=== PATIENT | female | born 1985 | race Caucasian/White ===

== ENCOUNTER 2021-06-09 09:12 | Outpatient (CLI) | payer BC, SELFPAY ==
[2021-06-09 09:41] LABS: Hemoglobin A1C 4.6 % (<5.7)
[2021-06-09 10:29] LABS: Thyroid Stimulating Hormone Reflex 0.935 uIU/mL (0.465-4.68)
[2021-06-12 15:32] LABS: Prolactin 6.1 ng/mL (***)
== END 2021-06-09 09:13 | disposition home or self-care (01) ==
LOC: ANHLAB 09:15
PROVIDERS: Visit Provider Obstetrics & Gynecology
DX: N92.6 Irregular menstruation, unspecified (principal)
CPT/HCPCS: 36415; 83036; 84146; 84443

== ENCOUNTER 2022-09-26 09:22 | Outpatient (RCR) | payer BC, SELFPAY ==
[2022-09-26 11:26] LABS: Basophils Absolute Auto 0.1 K/mm3 (0.0-0.1); Basophils Percent Auto 0.5 % (0.2-1.2); Eosinophils Absolute Auto 0.1 K/mm3 (0-0.3); Eosinophils Percent Auto 0.5 % (0-4.4); Hematocrit 39.5 % (37.0-47.0); Immature Granulocyte Absolute 0.22 K/mm3 (0.00-0.031); Immature Granulocyte Percent A 1.6 % (0-0.5); Lymphocytes Absolute Auto 1.62 K/mm3 (0.9-3.2); Lymphocytes Percent Auto 12.1 % (18.3-44.2); Mean Corpuscular HGB Conc 32.9 g/dl (32-36); Mean Corpuscular Hemoglobin 30.8 pg (26-34); Mean Corpuscular Volume 93.6 fl (80-100); Mean Platelet Volume 9.8 fl (7.4-10.4); Monocytes Absolute Auto 0.7 K/mm3 (0.1-0.6); Monocytes Percent Auto 5.5 % (2.6-8.5); Neutrophils Absolute Auto 10.7 K/mm3 (1.3-6.7); Neutrophils Percent Auto 79.8 % (45.5-73.1); Platelet Count Result 260 k/mm3 (150-375); Red Blood Count 4.22 M/mm3 (4.2-5.4); Red Cell Distribution Width 14.1 % (11.5-14.5); White Blood Count 13.4 K/mm3 (4.5-10.0)
[2022-09-26 11:36] LABS: Glucose 1 Hour PP 50gm Dose 94 mg/dL
[2022-09-26 12:17] LABS: HIV 1/2 Ab P24 Ag Result Negative (Negative)
[2022-09-26] MEDS: RHO(D) IMMUNE GLOBULIN 300 MCG/2 ML SYRINGE IM (13:56)
== END 2022-12-25 23:59 | disposition home or self-care (01) ==
LOC: ANHLAB 09:22
PROVIDERS: Visit Provider Obstetrics & Gynecology
DX: Z11.4 Encounter for screening for human immunodeficiency virus [HIV] (principal); Z29.13 Encounter for prophylactic Rho(D) immune globulin; O36.0190 Maternal care for anti-D [Rh] antibodies, unspecified trimester, not applicable or unspecified; Z3A.00 Weeks of gestation of pregnancy not specified
CPT/HCPCS: 36415; 82947; 85025; 85461; 86703; 86850; 86900; 86901; 90384; 96372; G0432; J2790

== ENCOUNTER 2022-10-18 13:41 | Outpatient (CLI) | payer BC, SELFPAY ==
[2022-10-22 12:28] LABS: CMV IgG Antibody <0.60
[2022-10-22 14:33] LABS: Varicella IgG Antibody 2740
== END 2022-10-18 13:42 | disposition home or self-care (01) ==
PROVIDERS: Visit Provider Obstetrics & Gynecology
DX: Z34.90 Encounter for supervision of normal pregnancy, unspecified, unspecified trimester (principal); Z3A.00 Weeks of gestation of pregnancy not specified
CPT/HCPCS: 36415; 86644; 86747; 86787

== ENCOUNTER 2022-12-12 15:51 | Inpatient (IN) | payer BC, SELFPAY ==
[2022-12-12] VITALS (16 sets, daily range): BP systolic 109–128; BP diastolic 32–104; PULSE 63–94; BMI 33.2
--- NOTE | 2022-12-12 16:16 | LDADM ---
This patient, Raina Garcia, was admitted to Labor/Delivery/Recovery 104 on 12/12/22 at 15:51. Plans for labor, pain management and were discussed with patient. Patient/family oriented to hospital policies and general routines including ID bracelet, bed and alarms, visiting hours, pain management, procedures, bathroom and other care routines, personal items, smoking policy, room service/diet and guest tray routines, infant security routines, and visiting hours. Patient/Family are encouraged to report perceived risks to care and to ask questions if they do not understand what they are told or what they should do. See OBIX for further documentation.
[2022-12-12 17:05] LABS: Basophils Percent Auto 0.2 % (0.2-1.2); Eosinophils Percent Auto 0.2 % (0-4.4); Hematocrit 42.6 % (37.0-47.0); Hemoglobin 14.5 g/dL (12.0-15.0); Immature Granulocyte Absolute 0.18 K/mm3 (0.00-0.031); Immature Granulocyte Percent A 1.4 % (0-0.5); Lymphocytes Absolute Auto 1.56 K/mm3 (0.9-3.2); Lymphocytes Percent Auto 12.2 % (18.3-44.2); Mean Corpuscular Hemoglobin 30.7 pg (26-34); Mean Corpuscular Volume 90.1 fl (80-100); Mean Platelet Volume 10.6 fl (7.4-10.4); Monocytes Absolute Auto 0.8 K/mm3 (0.1-0.6); Monocytes Percent Auto 6.4 % (2.6-8.5); Neutrophils Absolute Auto 10.2 K/mm3 (1.3-6.7); Neutrophils Percent Auto 79.6 % (45.5-73.1); Platelet Count Result 187 k/mm3 (150-375); Red Blood Count 4.73 M/mm3 (4.2-5.4); Red Cell Distribution Width 13.8 % (11.5-14.5); White Blood Count 12.8 K/mm3 (4.5-10.0)
[2022-12-12] MEDS: DINOPROSTONE 10 MG VAG INSERT VAGINAL (17:10)
[2022-12-13] VITALS (113 sets, daily range): BP systolic 99–136; BP diastolic 49–98; PULSE 68–120; RESP 16–20; TEMP 36.6–37.2; O2SAT 94–100
[2022-12-13] MEDS: LACTATED RINGERS 1,000 ML 125 ML IV CONT ×2 (05:57→08:10)
[2022-12-13] MEDS: OXYTOCIN 30 UNITS/NS 500 ML 30 UNITS/500 ML BAG 6 UNITS IV CONT (05:57)
[2022-12-13 07:23] LABS: Rapid Plasma Reagin Non-Reactive (NonReactive)
--- NOTE | 2022-12-13 07:45 | WPDANESEPP ---
Anes - Eval Pre Procedure Procedure: Labor Epidural Date/Time: 12/13/22 07:45 Surgeon: Roman Preop Diagnosis: Labor Pain Pre Op Diagnosis: IOL Patient Data Age: 37 Gender: F Height: 1.6 m Weight: 85 kg Last Vital Signs Temp 36.7 C 12/13/22 05:16 Pulse 86 12/13/22 07:43 BP 130/78 12/13/22 07:43 Pulse Ox 96 12/13/22 07:45 O2 Del Method Room Air 12/12/22 16:14 Allergies Allergy/AdvReac Type Severity Reaction Status Date / Time No Known Allergies Allergy Verified 12/10/22 08:11 Home Medications Medication Instructions Recorded Confirmed Type famotidine 20 mg tablet (Pepcid) 20 mg PO DAILY 09/18/22 12/12/22 History polyethylene glycol 3350 17 17 g PO DAILY 10/08/22 12/12/22 History gram/dose oral powder (Miralax) vit no.95-ferrous 1 tablet PO DAILY 11/17/22 12/12/22 History fumarate 28 mg-folic acid 800 mcg tablet () Laboratory Tests 12/12/22 16:06 WBC 12.8 H K/mm3 (4.5-10.0) RBC 4.73 M/mm3 (4.2-5.4) Hgb 14.5 g/dL (12.0-15.0) Hct 42.6 % (37.0-47.0) MCV 90.1 fl (80-100) MCH 30.7 pg (26-34) MCHC 34.0 g/dl (32-36) RDW 13.8 % (11.5-14.5) Plt Count 187 k/mm3 (150-375) MPV 10.6 H fl (7.4-10.4) Immature Gran % (Auto) 1.4 H % (0-0.5) Neut % (Auto) 79.6 H % (45.5-73.1) Lymph % (Auto) 12.2 L % (18.3-44.2) Upson % (Auto) 6.4 % (2.6-8.5) Eos % (Auto) 0.2 % (0-4.4) Baso % (Auto) 0.2 % (0.2-1.2) Lymph # (Auto) 1.56 K/mm3 (0.9-3.2) Upson # (Auto) 0.8 H K/mm3 (0.1-0.6) Eos # (Auto) 0.0 K/mm3 (0-0.3) Baso # (Auto) 0.0 K/mm3 (0.0-0.1) Abs Immat Gran (auto) 0.18 H K/mm3 (0.00-0.031) Absolute Neuts (auto) 10.2 H K/mm3 (1.3-6.7) Absolute Nucleated RBC 0.0 K/mm3 (0.0-0.012) Nucleated RBC % 0.0 % (0.0-0.2) RPR Non-reactive (NonReactive) Blood Type O Negative Antibody Screen Positive Antibody Identification Inconclusive Antigen Identification Cancelled ANA, IgG Interpret Not Performed ANA, Poly Interpret Neg ANA, Complement Interp Not Performed Patient hx anesthesia problems: none Family hx anesthesia problems: none Results Review: All pre-operative results and documents have been reviewed as part of the pre-operative evaluation. 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 IBS (irritable bowel syndrome) Irritable bowel syndrome with constipation Low grade squamous intraepithelial lesion (LGSIL) on cervicovaginal cytologic smear Miscarriage suction d&c Surgical History Surgical History History of breast augmentation 11/03/11 History of breast surgery 10/02/04 rt breast cyst removed History of colposcopy with cervical biopsy 04/27/04 squamous atypia, chronic inflammation cervix 09/23/08 moderate dysplasia LUCINA II 02/02/19 benign History of dilation and curettage 06/11/13 hscope d&c--irregular menstrual cycle-benign History of gynecologic surgery 10/29/08 CO2 laser vaporization of cervical dysplasia Family History Family History Grandparent Diabetes mellitus maternal grandfather maternal grandmother Cerebrovascular accident maternal grandfather Father Lymphoma Social History Social History Smoking status: Never smoker Alcohol intake: current Alcohol use details: weekends Substance use: never Substance use type: does not use Lack of Transportation: No Lack of Food: Never True Current Housing:
--- NOTE | 2022-12-13 15:01 | WPDOBADMIT ---
Obstetrics - Admit Note Admission Note: record reviewed. No pertinent additions to the history and/or any subsequent changes in the physical findings that are not consistent with the expected course of the were found. Additions to the history and/or subsequent changes in the physical findings follow. None.
--- NOTE | 2022-12-13 15:01 | WPDHPUPDATE1 ---
History and Physical Update Update Date/Time: 12/13/22 15:01 History and Physical has been reviewed, including an updated exam of the patient. There are NO changes in the patient's condition. Risks, benefits, and alternatives have been discussed and questions answered. Patient agrees to proceed with procedure.
--- NOTE | 2022-12-13 15:01 | PM.OBPRVD ---
OB - Delivery Note Procedure Induction method: Per Cervidil Protocol Delivery augmentation: Rupture of Membranes and Pitocin Delivery monitor: External FHT and External Uterine Route of delivery: Episiotomy description: None Laceration Description: Perineal - 3rd Degree Delivery repair: vicryl and chromic Specimen: Yes Quantitative Blood Loss (ml): 525 Anesthesia type: Epidural Disposition: Floor Complications: none Narrative: Patient prepped and draped usual manner for this procedure. Maternal expulsive efforts readily delivered vertex, nuchal cord was noted and clamped and cut. Rest of baby was delivered without difficulty and passed to the pediatric team in attendance. Placenta then delivered spontaneously intact. Cervix vagina vulva were inspected and a partial third-degree laceration was noted. The rectal sphincter was approximated using 3 interrupted 0 Vicryl sutures with good approximation noted. The vaginal apex laceration was then approximated using 2-0 chromic in a running interlocking manner this was approximated to the perineum deep tissue was approximated, the subcuticular layer with good approximation hemostasis noted. There was a small amount of oozing which did not require suturing but packing was placed and will be removed at approximate 30minutes. [place] [facility] Weeks of gestation at delivery: 39 Infant gender: Male Weight (pounds): 8 Weight (ounces): 15 presentation: vertex position: Left Occiput Anterior Placenta delivery description: Spontaneous Cord Vessel Description: 3 Vessels, Nuchal Cord and Clamped/Cut AMG Delivery Billing Delivery Delivery: Delivery Charge
[2022-12-13] MEDS: OXYTOCIN 30 UNITS/NS 500 ML 30 UNITS/500 ML BAG 125 UNITS IV CONT (15:10)
[2022-12-13] MEDS: IBUPROFEN 600 MG TABLET PO (16:00)
[2022-12-13] MEDS: BENZOCAINE 20% AER SPR (*SP) 56 GM CAN 1 SPRAY TOPICAL (17:48)
[2022-12-13] MEDS: WITCH HAZEL 40 PADS 1 PAD TOPICAL (17:48)
--- NOTE | 2022-12-13 18:01 | OBPPTRN ---
Patient transferred to post room #288 via w/c. Support person present. Oriented to unit, room, information board, rooming in, admission packet and security measures. Patient verbalizes understanding.
[2022-12-14] MEDS: HYDROcodone/acetaminophen (*CRX) 5-325 MG TABLET 1 TAB PO ×3 (04:40→17:19)
[2022-12-14 06:21] LABS: Hematocrit 36.1 % (37.0-47.0); Hemoglobin 12.2 g/dL (12.0-15.0)
--- NOTE | 2022-12-14 08:03 | P.PNOB_ITS ---
OB - PN: Subj Subjective Date/time seen: 12/14/22 08:03 Patient comments: no complaints, pain well controlled and tolerating diet [place] feeding status: exclusively breast feeding Narrative: overall doing well this morning. Patient is experiencing increased pressure her perineum. Patient states her bleeding is improving. Patient states her pain is controlled with p.o. medications. OB - PN: Obj Data Labs 12/14/22 06:08 Labs: Laboratory Results - last 24 hr 12/14/22 06:08 Hgb 12.2 Hct 36.1 L Blood Type O Negative Antibody Screen TNP OB - PN A/P Plan day: 1 Plan: routine care Comments: patient doing well H/H stable Vital signs stable Perineal care reviewed. Recommended continued use of ice. Stressed the importance of stool softeners and avoiding straining during bowel movements. Patient desires circumcision risks, benefits, alternatives discussed. Maternal consent obtained. continue routine care Time Spent With Patient Time: Total time spent is greater than 50% in coordination of care (as documented) at patient's floor/unit and/or counseling patient: Time with patient: less than 15 minutes Review of Systems Review of Systems: All systems reviewed & are unremarkable except as noted in HPI and below Exam 2 Const: General: comfortable and no acute distress Resp: Effort & Inspection: normal respiratory effort Cardio: Rate: regular rate GI: GI Palp: Yes Soft to palpation and No Tenderness to palpation present (GI) Auscultation: normal bowel sounds Other: fundus firm and below umbilicus. Psych: Affect: normal affect
[2022-12-14 08:35] VITALS: BP 96/65; PULSE 102; RESP 18; TEMP 36.4; O2SAT 97
[2022-12-14] MEDS: MULTIVIT/MIN/PREN/FOL AC/IRON TABLET 1 TAB PO (08:43)
[2022-12-14] MEDS: SENNA/DOCUSATE SODIUM TABLET 1 TAB PO ×2 (09:58→17:19)
[2022-12-14 12:10] VITALS: BP 103/72; PULSE 80; RESP 16; TEMP 36.5; O2SAT 99
[2022-12-14] MEDS: RHO(D) IMMUNE GLOBULIN 300 MCG/2 ML SYRINGE IM (13:19)
--- NOTE | 2022-12-14 14:18 | WPDANLDPN2 ---
Anes-Prog Note L&D Date/Time: 12/14/22 14:18 Comfortable throughout: labor and delivery Neuraxial method: epidural Epidural/Spinal procedure site: clean & non-tender Neuro status: Neuro function grossly intact. Cardiovascular status: normal Respiratory status: normal Airway patency: baseline Mental status: baseline Post-Op hydration status: normal Vital Signs: Last Vital Signs Temp 36.5 C 12/14/22 12:10 Pulse 80 12/14/22 12:10 Resp 16 12/14/22 12:10 BP 103/72 12/14/22 12:10 Pulse Ox 99 12/14/22 12:10 O2 Del Method Room Air 12/14/22 08:40 Pain score (VAS): 2/10 I/O: Intake & Output 12/13/22 12/14/22 12/14/22 23:59 07:59 15:59 Intake Total 240 Balance 240 Patient feedback: Patient satisfied with anesthetic care.
--- NOTE | 2022-12-14 19:42 | PC.NURSE ---
[id number] Introductions were made, then consulted with patient to assess needs related to . Mother led the conversation with her?plans to feed?her infant, her concerns with having breast implants relating that to milk supply and her?experience so far feeding her . We discussed paced bottle feeding, protecting her milk supply, stimulating breast 8 times in a 24hour period (1-2 times at night) unless she is effectively . We reviewed prevention, what to look for and when to call her MD if she has signs of mastitis. Prevention and treatment for engorgement or plugged ducts. Resources provided for inpatient and outpatient services with the feeding sheet, mom and baby guide. Parents voiced understanding of information and will call if there is a request for assistance. Reported to the primary RN.
[2022-12-14 21:04] VITALS: BP 120/80; PULSE 102; RESP 18; TEMP 36.5; O2SAT 100
[2022-12-15 09:25] VITALS: BP 104/71; PULSE 94; RESP 16; TEMP 36.6; O2SAT 97
[2022-12-15] MEDS: SENNA/DOCUSATE SODIUM TABLET 1 TAB PO (09:25)
[2022-12-15] MEDS: MULTIVIT/MIN/PREN/FOL AC/IRON TABLET 1 TAB PO (09:25)
--- NOTE | 2022-12-15 10:55 | PM.OBDSVD ---
DS: Admitting Diagnosis Discharge Date 12/15/22 Admitting Diagnosis intrauterine at term advanced maternal age DS: Discharge Diagnosis Discharge Diagnosis (1) Normal vaginal delivery: Code(s): O80 - Encounter for full-term uncomplicated delivery Status: Acute OB - DS: Summary OB Procedures : None OB Procedures Intrapartum: Spontaneous Vag Delivery OB Procedures: : None Status at Discharge Functional status at discharge: independent ambulation Overall status at discharge: patient is back to baseline Time Spent with Patient Time attestation: Total time spent providing and/or coordinating discharge services: Time spent: Less than 30 minutes Exam Const: General: comfortable and no acute distress Resp: Effort & Inspection: normal respiratory effort Auscultation: clear to auscultation bilaterally Cardio: Rate: regular rate GI: GI Palp: Yes Soft to palpation Auscultation: normal bowel sounds Other: Fundus firm below umbilicus Psych: Appearance: grossly normal Mental Status: mental status grossly normal Affect: normal affect DS: Data Data Completed and Pending Pending studies at discharge: Pending at discharge 12/13/22 16:01 Surgical [PTH] Routine Labs on day of discharge: Labs from last 24 hours 12/14/22 06:08 Blood Type O Negative Antibody Screen TNP Screen Negative Baby's Blood Type A pos Baby's ANA Positive Doses of RhIg Required 1 Discharge Plan Discharge Discharging Clinician: Clinton Gonzalez Patient Disposition: Home, Self-Care Activity: as tolerated and pelvic rest Diet: regular Patient Instructions: Antibiotic Form, Vaginal Delivery (DC) Stand Alone Forms: General Discharge Information Follow-up/Referrals: Sebas Owens MD [Physician] - Discharge Medications: New acetaminophen 500 mg tablet 500 mg PO Q6H PRN (Reason: pain) Qty: 30 0RF sennosides-docusate sodium [Senokot-S] 8.6-50 mg Tablet 1 tab PO BID Qty: 60 0RF ibuprofen 600 mg tablet 600 mg PO Q6H PRN (Reason: pain) Qty: 30 0RF Continued famotidine [Pepcid] 20 mg tablet 20 mg PO DAILY polyethylene glycol 3350 [Miralax] 17 gram/dose powder 17 g PO DAILY PNV cmb#95-ferrous fumarate-FA [] 28 mg iron- 800 mcg Tablet 1 tablet PO DAILY Date of admission: 12/12/22 15:51 Primary Care Provider: PHYSICIAN,HAT FINISHING MATERIALS PREPARER Admitting Provider: Sebas Owens Attending physician on admission: Sebas Owens Condition: Stable
[2022-12-15] MEDS: IBUPROFEN 600 MG TABLET PO (11:16)
[2022-12-15] MEDS: HYDROcodone/acetaminophen (*CRX) 5-325 MG TABLET 1 TAB PO (11:17)
[2022-12-17 09:31] VITALS: BP 121/77; PULSE 90; RESP 18; TEMP 37.1; O2SAT 98
== END 2022-12-15 14:42 | disposition home or self-care (01) | DRG 768 ==
LOC: ANHOB2 12-15 12:55 → ANHLDR 12-17 12:06 → ANHOB2 12-17 12:06
PROVIDERS: Admitting Provider Obstetrics & Gynecology; Visit Provider Student in an Organized Health Care Education/Training Program
DX: O69.81X0 Labor and delivery complicated by cord around neck, without compression, not applicable or unspecified (principal); Z37.0 Single live birth; O70.20 Third degree perineal laceration during delivery, unspecified; Z3A.39 39 weeks gestation of pregnancy
CPT/HCPCS: 36415; 85014; 85018; 85025; 85461; 86592; 86850; 86880; 86900; 86901; 86902; 88307; 90384; A9270; J2590; J2790; J2795; J7120

== ENCOUNTER 2024-11-20 08:09 | Outpatient (CLI) | payer BC, SELFPAY ==
--- OUTSIDE RECORDS SUMMARY | 2024-11-20 08:13 | XMS_ITS | Clinical Summary ---
Author Organization [facility] Address [address] [place] [address] Care Team Providers Care Yard Caller Name Role Phone Unavailable Primary Care Provider Unavailabl e Source Comments [facility],non-owned Affiliates and Associated Physician Practices is amultiple site organization consisting of ambulatory clinics and hospital sitesin [place], [place], [place] and [place]. This disclosure is being madepursuant to the Care Everywhere program and may not contain all information available regarding this patient. Last updated 17.[facility] Social History Tobacco Use Types Packs/Day Years Used Date Smoking Tobacco: Never Assessed Comments Unknown Sex and Gender Information Value Date Recorded Sex Assigned at Not on file Legal Sex Female 4:17 PM CDT Gender Identity Not on file Sexual Orientation Not on file Plan of Treatment Health Maintenance Due Date Last Done Comments HIV SCREENING 2001 HEPATITIS C SCREENING 12/31/2003 DTAP/TDAP/TD VACCINES (1 - Tdap) 2005 HEPATITIS B VACCINE (1 of 3 - 19+ 3-dose series) 2005 PAP SMEAR 2007 HPV VACCINE (1 - 3-dose SCDM series) 2013 DEPRESSION SCREENING 03/04/2024 COVID-19 VACCINE ( - 2023-2 5 season) 2024 INFLUENZA VACCINE (#1) 2024 ZOSTER VACCINE (1 of 2) 01/05/2036 HIB VACCINE Aged Out No longer eligi ble based on patient's age to complete this topic MENINGOCOCCAL (Group B) VACC INE SHARED DECISION-MAKING Aged Out No longer eligibl e based on patient's age to complete this topic MENINGOCOCCAL GROUPS A/C/Y/W VACCINE Aged Out No longer eligible b ased on patient's age to complete this topic PNEUMOCOCCAL VACCINE Aged Out No long er eligible based on patient's age to complete this topic Insurance [facility]
--- OUTSIDE RECORDS SUMMARY | 2024-11-20 08:13 | XMS_ITS | Encounter Summary ---
Author Organization [facility] Address [address] [place] [address] Care Team Providers Care Household Appliances Salesperson Name Role Phone Unavailable Primary Care Provider Unavailabl e Encounter Details Date Type Department Care Team (Late st Contact Info) Description 12/10/2019 Lab Requisition [facility] [address] [place] [address] John Hernandez MD [address] [place] [address] Social History Tobacco Use Types Packs/Day Years Used Date Smoking Tobacco: Never Assessed Comments Unknown Sex and Gender Information Value Date Recorded Sex Assigned at Not on file Legal Sex Female 4:17 PM CDT Gender Identity Not on file Sexual Orientation Not on file documented as of this encounter Plan of Treatment Not on file documented as of this encounter Procedures Procedure Name Priority Date/Time Associated Diagnosis Comments DERMATOPATHOLOGY Routine 12/08/2019 12:0 0 AM CDT documented in this encounter Results * DERMATOPATHOLOGY (12/08/2019 12:00 AM CDT) Case Report Dermatopathology Report Case: [id number] Authorizing Provider: John Hernandez MD Collected: 12/08/2019 12:00 AM Ordering Location: [facility] Received: 12/10/2019 06:27 AM Pathologist: Tiff Zazueta MD Specimen: Skin, left chest wall 0 2:12 PM CDT DERMATOPATHOLOGY LABORATORY Final Diagnosis Specimen A. 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 Path# [id number] 0 2:12 PM CDT DERMATOPATHOLOGY LABORATORY Gross Description Specimen A: Received is one formalin filled container labeled with the patient's name and designated left chest wall. The specimen consists of a shave biopsy measuring 10x7x2 mm. Jar 0. 0 2:12 PM CDT DERMATOPATHOLOGY LABORATORY Microscopic Description Specimen A. SKIN, left chest wall: This is a compound nevus. There is architectural disorder characterized by a lentiginous proliferation of melanocytes between irregular nevus nests of cells along the dermal-epidermal junction. There is underlying lamellar fibroplasia of the papillary dermis. The intradermal component is bland in appearance and matures with depth. (Compound Parish's Nevus or Compound Dysplastic Nevus) 0 2:12 PM CDT DERMATOPATHOLOGY LABORATORY Disclaimer An external and internal positive and negative controls are appropriate for the histochemical, immunohistochemical and immunofluorescence stain(s) in this case (if any), except where stated explicitly. The performance characteristics of the stain(s) cited in this report were developed and its performance characteristic determined by the Dermatopathology Laboratory at [facility], directed by Dr. Jerad Whipple. These tests need not be, and therefore are not, approved by the [place] Food and Drug Administration. The tests are used for clinical purposes. Billing Codes Specimen Charges Stain Charges 72012 1 0 2:12 PM CDT DERMATOPATHOLOGY LABORATORY Embedded Images 0 2:12 PM CDT DERMATOPATHOLOGY LABORATORY Pathology/Cytolog y TISSUE SPECIMEN FROM SKIN / Unknown 12/08/2019 12/10/2019 6:27 AM CDT us John Hernandez MD LAB - PATHOLOGY/CYTOLOGY ORDER MYRTLE Final Result DERMATOPATHOLOGY LABORATORY [facility] - Department of Dermatology [address], [address] [phone] documented in this encounter Visit Diagnoses Not on filedocumented in this encounter
[2024-11-20 08:45] LABS: Hematocrit 44.6 % (37.0-47.0); Hemoglobin 15.0 g/dL (12.0-15.0); Mean Corpuscular HGB Conc 33.6 g/dl (32-36); Mean Corpuscular Hemoglobin 29.3 pg (26-34); Mean Corpuscular Volume 87.1 fl (80-100); Platelet Count Result 327 k/mm3 (150-375); Red Blood Count 5.12 M/mm3 (4.2-5.4); White Blood Count 9.1 K/mm3 (4.5-10.0)
[2024-11-20 09:45] LABS: HIV 1/2 Ab P24 Ag Result Negative (Negative)
[2024-11-20 09:57] LABS: Syphilis IgG/IgM Antibody Non-Reactive (Nonreactive)
[2024-11-20 10:01] LABS: Hepatitis B Surface Antigen Negative (Negative)
[2024-11-20 11:00] LABS: Beta HCG Quantitative 284830.00 mIU/ML
[2024-11-21 06:08] LABS: Cytomegalovirus (CMV) Ab, IgG <0.60 U/mL (0.00-0.59)
[2024-11-23 12:08] LABS: Varicella-Zoster Ab, IgG Reactive (Non Reactive); Varicella-Zoster Ab, IgM <0.91 index (0.00-0.90)
[2024-11-24 13:09] LABS: Parvovirus B19, IgG 5.1 index (0.0-0.8); Parvovirus B19, IgM 0.2 index (0.0-0.8)
== END 2024-11-20 08:10 | disposition home or self-care (01) ==
LOC: ANHLAB 08:11
PROVIDERS: Visit Provider Student in an Organized Health Care Education/Training Program
DX: N91.2 Amenorrhea, unspecified (principal)
CPT/HCPCS: 36415; 84702; 85027; 86593; 86644; 86703; 86747; 86762; 86787; 86850; 86900; 86901; 87086; 87340; G0432